=== PATIENT | male | born 1970 | race American Indian/Alaskan Native ===

== ENCOUNTER 2016-09-23 10:36 | Emergency (ER) | payer OTHER ==
[2016-09-23 11:06] VITALS: BP 132/94
[2016-09-23 11:52] LABS: Bilirubin,Urine NEG (Negative); Blood,Urine MOD (Negative); Ketones,Urine NEG (Negative); Leukocyte Esterase,Urine LG (Negative); Nitrite,Urine NEG (Negative); Protein,Urine <15 mg/dL mg/dL (Negative); Urobilinogen,Urine < 2.0 mg/dL (<2.0)
[2016-09-23 11:59] LABS: WBC,Urine > 182.0 /HPF (0.0-6.0)
[2016-09-23] MEDS ORDERED: ROCEPHIN IM ONE (12:47)
[2016-09-23] MEDS ORDERED: ZITHROMAX PO ONE (12:47)
[2016-09-23] MEDS ORDERED: XYLOCAINE 1% MPF 5 mL INFILTRATI ONE (12:47)
[2016-09-23] MEDS ORDERED: FLAGYL PO ONE (12:47)
--- NOTE | 2016-09-23 13:02 | Emergency Department Report ---
HPI - General Chief Complaint: Urogenital-Male Time Seen by Provider: 09/23/16 12:19 - HPI HPI: 45-year-old male presents ED complaining of penile discharge 2 days. Pt states he noticed small amounts of blood in his urine times today. Patient denies burning with urination. Patient denies fevers/chills/nausea/vomiting/abdominal pain/penile pain/testicular swelling or testicular pain. She mentions he had sexual intercourse last week and protected. Patient states it is not known status of his partner. ED Past Medical Hx - Past Medical History Previous Medical History?: No - Surgical History Past Surgical History?: No - Social History Smoking Status: Current Some Day Smoker Substance Use Type: Alcohol, Marijuana - Medications Home Medications: Home Medications Medication Instructions Recorded Confirmed Last Taken Type No Known Home Medications [No 09/23/16 09/23/16 Unknown History Reported Home Medications] ED Review of Systems ROS: Stated complaint: BLOOD/PUSS DISCHARGE IN URINE Other details as noted in HPI Constitutional: denies: chills, fever Eyes: denies: eye pain, eye discharge, vision change ENT: denies: ear pain, throat pain Respiratory: denies: cough, shortness of breath, wheezing Cardiovascular: denies: chest pain, palpitations Endocrine: no symptoms reported Gastrointestinal: denies: abdominal pain, nausea, vomiting, diarrhea Genitourinary: dysuria. denies: urgency, frequency, hematuria, testicular pain , testicular mass Musculoskeletal: denies: back pain, joint swelling, arthralgia Skin: denies: rash, lesions, change in color, pruritus Neurological: denies: headache, weakness, numbness, paresthesias, confusion Psychiatric: denies: anxiety, depression Hematological/Lymphatic: denies: easy bleeding, easy bruising Physical Exam - Physical Exam Vital Signs: Vital Signs 09/23/16 11:03 Temperature 98.3 F Pulse Rate 88 Respiratory 17 Rate Blood Pressure 132/94 O2 Sat by Pulse 100 Oximetry Physical Exam: GENERAL: Alert and oriented x3, no apparent distress, Normal Gait, atraumatic. HEAD: Head is normocephalic and a-traumatic. EYES: Extra ocular muscles are intact. Pupils are equal, round, and reactive to light and accommodation. LUNGS: Symetrical with respiration, No wheezing, no rales or crackles, CTAB. HEART: S1, S2 present, regular rate and rhythm without murmur, no rubs, no gallops. ABDOMEN: No organomegaly was noted,Positive bowel sounds, soft, and non- distended. . Nontender to palpation on all Quadrants, NO CVA tenderness. UROGENITAL: No scrotal mass, Scrotum non tender to palpation bilaterally, no hernia, no scars or penile discharge. EXTREMITIES/MUSCULOSKELETAL: No cyanosis, clubbing, rash, lesions or edema. Full ROM bilaterally. UE/LE Pulses 2+ bilaterally. NEUROLOGIC: No focal Deficit, Cranial nerves II through XII are grossly intact. No loss of sensation, PSYCHIATRIC: Mood is congruent with affect, denies suicidal or homicidal ideations. SKIN: Warm and dry, No lesions, No ulceration or induration present. ED Course Vital Signs 09/23/16 11:03 Temperature 98.3 F Pulse Rate 88 Respiratory 17 Rate Blood Pressure 132/94 O2 Sat by Pulse 100 Oximetry ED Medical Decision Making - Medical Decision Making 25-year-old male presents with urethritis/STD exposure ED course: he received STD empirical treatment in ED with Rocephin 250 and azithromycin 1 g. Was also given 2 g of Flagyl Urinalysis showed elevated WBCs. Elevated WBCs Discussed patient follow up with primary care for further STD testing Discussed the patient findings. Vital signs normal patient is in no acute distress. Patient states she understands and will comply to follow-up Critical care attestation.: If time is entered above; I have spent that time in minutes in the direct care of this critically ill patient, excluding procedure time. ED Disposition Clinical Impression: STD exposure, Urethritis Disposition: DISCHARGED TO HOME OR SELFCARE Is pt being admited?: No Does the pt Need Aspirin: No Condition: Stable Instructions: Sexually Transmitted Diseases (ED), Safe Sex (ED), Nonspecific Urethritis in Men (ED) Additional Instructions: Follow up with PCP You have been treated for std exposure today Follow up with health department for further STD screening Referrals: PRIMARY MD MALU [Primary Care Provider] - 3-5 Days Forms: Accompanied Note, STI Treatment and Prevention, Work/School Release Form (ED) Time of Disposition: 13:06
--- NOTE | 2016-09-23 13:09 | Emergency Department Report ---
Entered by MARILU JASSO, acting as scribe for COLTON GRAY PA. Chief Complaint: Urogenital-Male Stated Complaint: BLOOD/PUSS DISCHARGE IN URINE Time Seen by Provider: 09/23/16 11:04 - HPI History of Present Illness: 45 y/o male presents c/o mild hematuria that started 2 days ago and penile discharge that started 1 week ago. Pt notes abd pain but denies dysuria or fever. He also notes having multiple UTIs every 3-5 years. He notes having unprotected sex last week. Pt endorses ETOH, marijuana and tobacco use. - ROS Review of Systems: as noted in HPI - Exam Vital Signs: Vital Signs 09/23/16 11:03 Temperature 98.3 F Pulse Rate 88 Respiratory 17 Rate Blood Pressure 132/94 O2 Sat by Pulse 100 Oximetry Physical Exam: General: 45 y/o male in no acute distress. Well-developed, well-nourished. CV: Regular rate and rhythm. No murmurs rubs or gallops. Lungs: Clear to auscultation bilaterally. Abdomen: suprapubic tenderness to palpation. No guarding or rebound tenderness. Normal bowel sounds. Mini Neuro: Alert and oriented 3. MSE screening note: Focused history and physical exam performed. Due to findings the following was ordered:UA and GC/chlamydia ED Disposition for MSE Clinical Impression: STD exposure, Urethritis Disposition: DISCHARGED TO HOME OR SELFCARE Condition: Stable Instructions: Sexually Transmitted Diseases (ED), Safe Sex (ED), Nonspecific Urethritis in Men (ED) Additional Instructions: Follow up with PCP You have been treated for std exposure today Follow up with health department for further STD screening Referrals: PRIMARY CARE, [Primary Care Provider] - 3-5 Days Forms: Accompanied Note, STI Treatment and Prevention, Work/School Release Form (ED) This documentation as recorded by the scribe,MARILU JASSO,accurately reflects the service I personally performed and the decisions made by MARINA matute FABIOLA N, PA.
[2016-09-23] MEDS ORDERED: NACL BACTERIOSTATIC INFILTRATI ONE (13:12)
[2016-09-23] MEDS ORDERED: WATER FOR INJ (PF) IM ONE (14:50)
== END 2016-09-23 13:36 | disposition home or self-care (01) ==
LOC: ED 10:36
DX: N34.2 Other urethritis (principal); Z20.2 Contact with and (suspected) exposure to infections with a predominantly sexual mode of transmission; F12.90 Cannabis use, unspecified, uncomplicated; Z72.0 Tobacco use
CPT/HCPCS: 81001; 87591; 96372; 99283; J0696